=== PATIENT | male | born 1990 | race Caucasian/White ===

== ENCOUNTER 2019-07-04 20:19 | Emergency (ER) | payer SELFPAY ==
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
[2019-07-04 20:30] VITALS: BP 137/81; PULSE 110; RESP 20; TEMP 36.8; O2SAT 96
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
[2019-07-04 21:06] LABS: Basophils Absolute Auto 0.1 K/mm3 (0.0-0.1); Basophils Percent Auto 1.1 % (0.2-1.2); Eosinophils Absolute Auto 0.2 K/mm3 (0-0.3); Eosinophils Percent Auto 2.6 % (0-4.4); Hematocrit 41.8 % (42.0-52.0); Hemoglobin 13.9 g/dL (14.0-18.0); Immature Granulocyte Absolute 0.05 K/mm3 (0.00-0.031); Immature Granulocyte Percent A 0.7 % (0-0.5); Lymphocytes Absolute Auto 1.54 K/mm3 (0.9-3.2); Lymphocytes Percent Auto 21.3 % (18.3-44.2); Mean Corpuscular HGB Conc 33.3 g/dl (32-36); Mean Corpuscular Hemoglobin 30.5 pg (26-34); Mean Corpuscular Volume 91.7 fl (80-100); Monocytes Absolute Auto 0.3 K/mm3 (0.1-0.6); Monocytes Percent Auto 4.7 % (2.6-8.5); Neutrophils Percent Auto 69.6 % (45.5-73.1); Platelet Count Result 243 k/mm3 (150-375); Red Blood Count 4.56 M/mm3 (4.6-6.20); Red Cell Distribution Width 12.3 % (11.5-14.5); White Blood Count 7.2 K/mm3 (4.5-10.0)
[2019-07-04] MEDS: HALOPERIDOL LACTATE 5 MG/ML VIAL (21:20)
[2019-07-04] MEDS: LORAZEPAM INJ 2 MG/ML VIAL (21:21)
[2019-07-04 21:22] VITALS: BP 113/56; PULSE 87; RESP 16; O2SAT 96
[2019-07-04 21:34] LABS: Ethanol 268 mg/dL (<10)
[2019-07-04 21:35] LABS: Alanine Aminotransferase 28 U/L (4-50); Albumin Level 4.3 g/dL (3.5-5.1); Alkaline Phosphatase 72 U/L (38-126); Aspartate Amino Transferase 32 U/L (17-59); Bilirubin,Total 0.2 mg/dL (0.2-1.3); Blood Urea Nitrogen 13 mg/dL (9-20); Calcium 8.7 mg/dL (8.4-10.2); Carbon Dioxide 20 mmol/L (22-30); Chloride 109 mmol/L (98-107); Estimated Glomerular Filt Rate > 60; Glucose 103 mg/dL (75-110); Potassium 3.7 mmol/L (3.4-5.0); Sodium 143 mmol/L (137-145)
[2019-07-04 21:46] VITALS: BP 98/70; PULSE 90; RESP 20; O2SAT 96
[2019-07-04 22:53] VITALS: BP 151/98; PULSE 94; RESP 20; O2SAT 95
[2019-07-04 23:17] LABS: Add Urine Microscopic? NO; Appearance Urine Clear (Clear); Bilirubin Urine Negative (Negative); Blood Urine Negative (Negative); Color Urine Straw (Yellow); Glucose Urine UA Negative (Negative); Ketones Urine Negative (Negative); Leukocyte Esterase Ur Negative LEU/UL (Negative); Nitrate Urine Negative (Negative); Protein Urine Negative (Negative); Specific Grav Ur 1.005 (1.001-1.035); Urobilinogen Urine Negative mg/dL (<2.0)
[2019-07-04 23:33] LABS: Amphetamine Screen Urine Negative (Negative); Barbiturate Screen Urine Negative (Negative); Benzodiazepines Screen Urine Negative (Negative); Cannabinoid Screen Urine Negative (Negative); Cocaine Screen Urine Negative (Negative); Methadone Screen Urine Negative (Negative); Opiate Screen Urine Negative (Negative); Phencyclidine Screen Urine Negative (Negative)
[2019-07-04 23:36] VITALS: BP 157/104; PULSE 90; RESP 20; O2SAT 96
[2019-07-05] VITALS (7 sets, daily range): BP systolic 107–135; BP diastolic 47–99; PULSE 77–100; RESP 12–25; TEMP 36.7; O2SAT 91–100
--- NOTE | 2019-07-05 04:04 | PC.NURSE ---
this rn went into pt's room to assess neurological status. initially pt was talking random words but not making much sense. pt able to tell me his name and the year. pt not able to tell me where he is or where he was before he came here. pt not able to tell me why he's here tonight. pt denies any pain at this time. pt states i might still be a little drunk. notified.
--- NOTE | 2019-07-05 04:47 | PC.NURSE ---
pt alert, asking questions about why hes here. pt able to answer all questions at this time. pt ambulated per md verbal orders. pt able to walk in a straight line. md notified.
--- NOTE | 2019-08-11 15:27 | PM.IMHP ---
H&P: HPI History of Present Illness Chief complaint: ETOH Narrative: Nnamdi Hager is a 29 year old male status post tubal a ablation who is admitted for diagnostic laparoscopy. She has had pain discomfort and dyspareunia. She had an ablation but had some irregular bleeding she underwent ultrasound which was essentially negative the pain has been unrelenting she opts for laparoscopy. Risks and benefits reviewed Review of Systems Review of Systems: All systems reviewed & are unremarkable except as noted in HPI and below PMFSH Past Medical History Medical History No pertinent past medical history Surgical History Surgical History No pertinent past surgical history Social History Social History Smoking status: Smoker, status unknown Alcohol intake: current Exam Const: General: no acute distress Eyes: General: appearance normal, both eyes and all related structures Neck: Neck: supple and no JVD Thyroid: thyroid normal Resp: Effort & Inspection: normal respiratory effort Auscultation: clear to auscultation bilaterally Cardio: Rate: regular rate Rhythm: regular rhythm GI: Inspection: non-distended GI Palp: Yes Soft to palpation, No Tenderness to palpation present (GI) and No Guarding due to palpation present (GI) Auscultation: normal bowel sounds : General: Yes bladder normal to palpation Skin: General skin exam: no rashes or lesions noted Extrem: General: normal to inspection and no edema Psych: Mental Status: mental status grossly normal Affect: normal affect Assessment and Plan Additional Plan impression: Pelvic pain Plan: Diagnostic laparoscopy:
== END 2019-07-05 04:59 | disposition home or self-care (01) ==
PROVIDERS: Emergency Provider Emergency Medicine
DX: F10.921 Alcohol use, unspecified with intoxication delirium (principal); Y90.8 Blood alcohol level of 240 mg/100 ml or more
CPT/HCPCS: 36415; 51701; 80053; 80307; 81003; 84443; 85025; 96372; 99284; J1630; J2060